=== PATIENT | female | born 1990 ===

== ENCOUNTER 2020-12-20 06:16 | Outpatient (REF) | payer BC, SELFPAY ==
[2020-12-20 11:27] LABS: Hematocrit 35.9 % (37.0-47.0); Hemoglobin 12.2 g/dl (12.0-16.0); Mean Corpuscular Hemoglobin 28.8 pg (27.0-33.0); Mean Corpuscular Volume 84.9 fL (80.0-98.0); Mean Platelet Volume 9.3 fL (9.4-12.3); Platelet Count 342 X10*3/uL (160-400); Red Blood Count 4.23 X10*6/uL (4.20-5.50); Red Cell Distribution Width 13.2 % (11.0-16.0); White Blood Count 8.3 X10*3/uL (4.8-10.8)
[2020-12-20 11:55] LABS: Alanine Aminotransferase 23 U/L (0-31); Albumin Level 3.9 g/dL (3.5-5.0); Alkaline Phosphatase 88 U/L (39-117); Anion Gap 16 (12-20); Aspartate Amino Transferase 22 U/L (5-31); Bilirubin Total 0.4 mg/dL (0.0-1.0); Blood Urea Nitrogen 10 mg/dL (9-16); Calcium 8.9 mg/dL (8.4-10.2); Carbon Dioxide 21 mmol/L (22-29); Chloride 105 mmol/L (96-108); Cholesterol 283 mg/dL; Estimated Glomerular Filt Rate > 60; Glucose Fasting 87 mg/dL (60-99); HDL Cholesterol 47 mg/dL; Potassium 4.2 mmol/L (3.3-5.1); Sodium 138 mmol/L (135-145); Total Protein 7.1 g/dL (6.5-8.0); Triglycerides 478 mg/dL
[2020-12-20 12:04] LABS: TSH reflex Free T4 1.49 uIU/mL (0.32-4.0)
[2020-12-20 12:10] LABS: HIV AB/AG Nonreactive (Nonreactive); HIV Num 1 0.09 S/CO (0.00-0.99)
[2020-12-20 14:34] LABS: CT PCR NOT DETECTED (Not Detect.); NG PCR NOT DETECTED (Not Detect.)
== END 2020-12-20 06:17 | disposition home or self-care (01) ==
LOC: HO.HMGCLDS 06:16
PROVIDERS: PCP Internal Medicine; Visit Provider Internal Medicine
DX: Z00.00 Encounter for general adult medical examination without abnormal findings (principal); Z11.4 Encounter for screening for human immunodeficiency virus [HIV]; Z11.3 Encounter for screening for infections with a predominantly sexual mode of transmission; R10.9 Unspecified abdominal pain
CPT/HCPCS: 80053; 80061; 84443; 85027; 87389; 87491; 87591

== ENCOUNTER 2020-12-23 | Outpatient (REF) | payer BC, SELFPAY | END 2020-12-23 00:01 | disposition home or self-care (01) | LOC: HO.HMGCLNP | PROVIDERS: Visit Provider Internal Medicine | DX: Z00.00 Encounter for general adult medical examination without abnormal findings (principal); R10.9 Unspecified abdominal pain | CPT/HCPCS: 87338 ==

== ENCOUNTER 2020-12-31 11:00 | Outpatient (REF) | payer BC, SELFPAY ==
--- NOTE | ~2020-12-31 | US_ITS ---
EXAMINATION: US ABDOMEN COMPLETE CLINICAL INFORMATION: Unspecified abdominal pain. Rule out gallstone. COMPARISON: None TECHNIQUE: Real-time imaging of the abdominal viscera. FINDINGS: PANCREAS: Normal. ABDOMINAL AORTA: The proximal, mid, and distal segments are normal in caliber. INFERIOR VENA CAVA: Visualized portions are normal. LIVER: Normal. The liver is normal in size. The liver contour is normal. Parenchymal echogenicity is normal. No focal hepatic lesion. There is no intrahepatic biliary duct dilatation seen. GALLBLADDER: Gallbladder wall thickness measures 0.16 cm. The gallbladder is physiologically distended without evidence of stones, sludge, polyps, wall thickening or pericholecystic fluid. COMMON BILE DUCT: Normal in caliber measuring 0.22 cm in diameter. RIGHT KIDNEY: Normal. No hydronephrosis. No renal calculi or focal parenchymal lesions. The kidney measures 13.9 cm in maximum dimension. LEFT KIDNEY: Normal. No hydronephrosis. No renal calculi or focal parenchymal lesions. The kidney measures 13.0 cm in maximum dimension. SPLEEN: Normal. The spleen measures 9.8 cm in maximum dimension. FREE FLUID: None. US/US abdomen complete IMPRESSION: Unremarkable complete abdomen ultrasound.
== END 2020-12-31 11:01 | disposition home or self-care (01) ==
LOC: HO.HMGCX 11:00
PROVIDERS: PCP Internal Medicine; Visit Provider Internal Medicine
DX: R10.9 Unspecified abdominal pain (principal)
CPT/HCPCS: 76700

== ENCOUNTER 2022-04-08 09:23 | Outpatient (REF) | payer BC, MEDICAID, SELFPAY ==
[2022-04-08 11:01] LABS: MANUAL DIFF FLAG NO
[2022-04-08 11:24] LABS: Basophils Percent Auto 0.5 % (0-2); Eosinophils Absolute Auto 0.1 X10*3/uL (0.0-0.4); Eosinophils Percent Auto 1.7 % (0-4); Hematocrit 38.8 % (37.0-47.0); Hemoglobin 13.2 g/dl (12.0-16.0); Imm Gran Abs Auto 0.02 X10*3/uL (0.00-0.03); Imm Gran Pct Auto 0.3 % (0.0-0.4); Lymphocytes Absolute Auto 3.1 X10*3/uL (1.2-4.9); Lymphocytes Percent Auto 39.9 % (20-40); Mean Corpuscular Hemoglobin 28.8 pg (27.0-33.0); Mean Corpuscular Volume 84.7 fL (80.0-98.0); Mean Platelet Volume 9.2 fL (9.4-12.3); Monocytes Absolute Auto 0.5 X10*3/uL (0.1-1.2); Monocytes Percent Auto 6.6 % (2-11); Neutrophils Absolute Auto 3.9 x10*3/uL (2.0-8.3); Platelet Count 365 X10*3/uL (160-400); Red Blood Count 4.58 X10*6/uL (4.20-5.50); Red Cell Distribution Width 12.2 % (11.0-16.0); White Blood Count 7.7 X10*3/uL (4.8-10.8)
[2022-04-08 11:35] LABS: Alanine Aminotransferase 30 U/L (0-31); Albumin Level 4.2 g/dL (3.5-5.0); Alkaline Phosphatase 101 U/L (39-117); Anion Gap 10 (12-20); Aspartate Amino Transferase 19 U/L (5-31); Bilirubin Total 0.4 mg/dL (0.0-1.0); Blood Urea Nitrogen 9 mg/dL (9-16); Calcium 8.9 mg/dL (8.4-10.2); Carbon Dioxide 26 mmol/L (22-29); Chloride 107 mmol/L (96-108); Cholesterol 314 mg/dL; Estimated Glomerular Filt Rate > 60; Glucose Fasting 95 mg/dL (60-99); HDL Cholesterol 38 mg/dL; Potassium 4.4 mmol/L (3.3-5.1); Sodium 139 mmol/L (135-145); Total Protein 7.2 g/dL (6.5-8.0); Triglycerides 556 mg/dL
[2022-04-08 11:51] LABS: Estimated Average Glucose 108 mg/dL; Hemoglobin A1c % 5.4 %
[2022-04-08 11:53] LABS: TSH reflex Free T4 1.15 uIU/mL (0.32-4.0)
== END 2022-04-08 09:24 | disposition home or self-care (01) ==
LOC: HO.HMGCLDS 09:23
PROVIDERS: Visit Provider Internal Medicine
DX: Z00.00 Encounter for general adult medical examination without abnormal findings (principal); O24.419 Gestational diabetes mellitus in pregnancy, unspecified control; O26.899 Other specified pregnancy related conditions, unspecified trimester; O99.330 Smoking (tobacco) complicating pregnancy, unspecified trimester; E78.5 Hyperlipidemia, unspecified; K21.9 Gastro-esophageal reflux disease without esophagitis; F17.210 Nicotine dependence, cigarettes, uncomplicated; Z79.899 Other long term (current) drug therapy
CPT/HCPCS: 36415; 80053; 80061; 83036; 84443; 85025

== ENCOUNTER 2022-06-24 10:57 | Outpatient (REF) | payer BC, MEDICAID, SELFPAY ==
[2022-06-24 14:36] LABS: Alanine Aminotransferase 29 U/L (0-31); Albumin Level 4.3 g/dL (3.5-5.0); Alkaline Phosphatase 95 U/L (39-117); Anion Gap 9 (12-20); Aspartate Amino Transferase 21 U/L (5-31); Bilirubin Total 0.5 mg/dL (0.0-1.0); Blood Urea Nitrogen 13 mg/dL (9-16); Carbon Dioxide 24 mmol/L (22-29); Chloride 108 mmol/L (96-108); Cholesterol 235 mg/dL; Estimated Glomerular Filt Rate > 60; Glucose Fasting 113 mg/dL (60-99); HDL Cholesterol 37 mg/dL; Potassium 4.4 mmol/L (3.3-5.1); Sodium 137 mmol/L (135-145); Total Protein 7.2 g/dL (6.5-8.0); Triglycerides 486 mg/dL
== END 2022-06-24 10:58 | disposition home or self-care (01) ==
LOC: HO.HMGCLDS 10:57
PROVIDERS: PCP Internal Medicine; Visit Provider Internal Medicine
DX: E78.5 Hyperlipidemia, unspecified (principal)
CPT/HCPCS: 36415; 80053; 80061

== ENCOUNTER 2022-09-26 09:55 | Outpatient (REF) | payer BC, MEDICAID, SELFPAY ==
[2022-09-26 11:53] LABS: Alanine Aminotransferase 22 U/L (0-31); Albumin Level 4.2 g/dL (3.5-5.0); Alkaline Phosphatase 99 U/L (39-117); Anion Gap 10 (12-20); Aspartate Amino Transferase 19 U/L (5-31); Bilirubin Total 0.5 mg/dL (0.0-1.0); Blood Urea Nitrogen 12 mg/dL (9-16); Calcium 9.4 mg/dL (8.4-10.2); Carbon Dioxide 23 mmol/L (22-29); Chloride 110 mmol/L (96-108); Cholesterol 174 mg/dL; Estimated Glomerular Filt Rate > 60; Glucose Fasting 118 mg/dL (60-99); HDL Cholesterol 37 mg/dL; LDL Cholesterol Calculated 94 mg/dl; Potassium 4.1 mmol/L (3.3-5.1); Sodium 139 mmol/L (135-145); Total Protein 7.4 g/dL (6.5-8.0); Triglycerides 217 mg/dL
== END 2022-09-26 09:56 | disposition home or self-care (01) ==
LOC: HO.HMGCLDS 09:55
PROVIDERS: PCP Internal Medicine; Visit Provider Internal Medicine
DX: E78.5 Hyperlipidemia, unspecified (principal)
CPT/HCPCS: 36415; 80053; 80061

== ENCOUNTER 2022-09-29 11:00 | Day surgery (SDC) | payer BC, MEDICAID, SELFPAY ==
--- NOTE | 2022-09-29 11:53 | HO.ANESPROP2 ---
HPI - Anesthesia Eval Consult details Narrative: egd PMFSH Active Problems Active Problems: All Active Problems (Updated 04/08/22 @ 11:35 by Keyonna Panda PA-C) Gestational diabetes mellitus (Acute) Chronic GERD (Acute) Normal pelvic exam (Acute) Hyperlipidemia (Acute) Headache (Acute) Abdominal pain (Acute) Annual physical exam (Acute) Past Medical History Medical History Abdominal pain Annual physical exam Headache Hyperlipidemia Normal pelvic exam Family History Family history of problems with anesthesia: No Surgical History History of Problems with Anesthesia: No Social History Social History Housing: Apartment Patient Tobacco Use Status: Current everyday Tobacco user Tobacco use type: Cigarette Cigarettes Per Day: 6 Years Smoked: 15 years old on and off e-Cigarette/Vaping Use: Never Used Advance Directives: No Advance Directives Information Provided: Yes Current occupational status: employed Cognitive needs: No Hearing needs: No Vision needs: Yes Meds Allergies Allergy/AdvReac Type Severity Reaction Status Date / Time No Known Allergies Allergy Verified 04/08/22 10:22 [No Known Allergies*] Active Medications: Current Medications Lactated Ringer's (Lr) 1,000 mls @ 80 mls/hr IVCONT .[id number] GAYATRI Exam Exam Date and Time: September 29, 2022 1153 Airway Mallampati Class: II TM Dist: >3cm Neck ROM: Limited Heart: rrr Lungs: cta Assessment and Plan Assessment Anesthesia Assessment: Anesthesia Plan Discussed and Chart Reviewed Final Anesthetic Review Family History of Problems with Anesthesia: No History of Problems with Anesthesia: No NPO: Yes ASA Class: II Final Preanesthetic Review: No Changes in Pt Med Stat, Meds/Allgs Chart Reviewed, Consent Obtained/Reviewed and Anes Risks/Benef Reviewed Patient Risk: Low Procedure Risk: Intermediate Anesthetic Plan Anesthetic Plan: MAC: and Agree w/ Assess. and Plan Disposition: Standard PACU
[2022-09-29 12:10] VITALS: BMI 37.2
[2022-09-29 12:14] VITALS: BP 128/82; PULSE 92; RESP 16; TEMP 36.4; O2SAT 97
[2022-09-29 12:14] LABS: UPreg QC Valid YES; Urine Pregnancy NEGATIVE (NEGATIVE)
[2022-09-29] MEDS: Lactated Ringers 1,000 ML 80 ML IVCONT (12:25)
--- NOTE | 2022-09-29 13:00 | MHC.SHP ---
Pre-Procedural Eval Section A Date of Service: 09/29/22 Section B Chief Complaint: Gastro-esophageal reflux disease without esophagit Relevant Family History (Specify if Yes): No Relevant Social History: Tobacco Use Present Medications: see Short Stay Collaborative assessment Medical History: Significant History (Abdominal pain Annual physical exam Headache Hyperlipidemia Normal pelvic exam) History of Previous Operations: No relevant previous surgery Allergies: Allergies Allergy/AdvReac Type Severity Reaction Status Date / Time No Known Allergies Allergy Verified 04/08/22 10:22 [No Known Allergies*] Review of Systems Sugical H&P ROS: Negative: Constitution, Cardiovascular, Respiratory, Neurological, Psychiatric, Hem-Onc, Allergic/Immunologic, Gastrointestinal, Genitourinary, Musculoskeletal, Integumentary, Endocrine and Eyes/Ears/Nose/Throat Exam Surgical H&P Exam: Normal: HEENT, Normal: Heart, Normal: Lungs, Normal: Extremities, Normal: Abdomen, Normal: Skin and Normal: Neurological Plan Diagnosis/Plan: Unchanged I have reviewed the history and physical and performed a pertinent physical examination on my patient. No changes have occurred unless specified. Time Spent With Patient Time: Total time managing care of this patient today ____ minutes.
--- NOTE | 2022-09-29 13:29 | W.PM.OPN ---
Operative Note Operative Note Date of Service: 09/29/22 Narrative: Procedure Description: EGD Indication: GERD Anesthesia: MAC FLEXIBLE TRANSORAL UPPER GASTROINTESTINAL ENDOSCOPY UPPER ENDOSCOPY Consent: Indications for the procedure and potential complications of bleeding, perforation, reaction to medications and missed diagnosis were discussed with the patient and informed consent was obtained. Instrument: Olympus GIF H 190 J mid size upper endoscope Monitoring: Vital signs and clinical assessment, continuous EKG monitoring, Pulse oximetry, Carbon Dioxide monitoring and blood pressure monitoring were done throughout the procedure. Procedure: The patient was placed in the left lateral decubitis position and pre-procedure medications were administered and a bite block was placed. The endoscope was inserted into the mouth and advanced under direct vision to the third part of duodenum. A careful inspection was made as the upper endoscope was withdrawn including a retroflexed examination of the proximal stomach; Findings and interventions are described below. Findings: Larynx:normal Esophagus: GE junction at 35 cm, diaphragm hiatus at 37 cm, consistent with 2 cm sliding hiatal hernia. There was few small islands of salmon pink tissue, bx taken to r/o barretts. Bx also taken from distal and proximal esophagus. Mild congestion and erythema also noted at GEJ Stomach: Patchy gastric erythema. Biopsies were obtained. Grade 2 flap valve on retroflexed examination of the cardia. There appeared to be reduced gastric movement. Duodenum: Normal bulb and descending duodenum, bx taken Intervention: Biopsies as noted above Impression/Findings: hiatal hernia esophagitis possible barretts gastritis possible gastroparesis PLAN: await results if bx neg then consider GES, weight loss and diet, can also consider surgical input or ARAT reflux precautions
[2022-09-29 13:35] VITALS: BP 118/80; PULSE 104; RESP 18; TEMP 36.7; O2SAT 96
[2022-09-29 13:47] VITALS: BP 143/90; PULSE 80; RESP 20; TEMP 36.8; O2SAT 97
== END 2022-09-29 14:23 | disposition home or self-care (01) ==
PROVIDERS: Anesthesiology; PCP Internal Medicine; Visit Provider Internal Medicine Gastroenterology
PROC: 0DJ08ZZ Inspection of Upper Intestinal Tract, Via Natural or Artificial Opening Endoscopic (ICD-10-PCS; CPT 43235; principal; 2022-09-29 13:10)
DX: K21.9 Gastro-esophageal reflux disease without esophagitis (principal); K20.80 Other esophagitis without bleeding; K29.50 Unspecified chronic gastritis without bleeding; K44.9 Diaphragmatic hernia without obstruction or gangrene; E78.5 Hyperlipidemia, unspecified; Z79.899 Other long term (current) drug therapy; F17.210 Nicotine dependence, cigarettes, uncomplicated
CPT/HCPCS: 43239; 81025; 88305; 88342; J3010

== ENCOUNTER → 2022-09-29 11:00 | Outpatient (BNV) | payer BC, MEDICAID, SELFPAY | PROVIDERS: PCP Internal Medicine; Visit Provider Internal Medicine Gastroenterology | DX: K21.00 Gastro-esophageal reflux disease with esophagitis, without bleeding (principal); K29.70 Gastritis, unspecified, without bleeding | CPT/HCPCS: 43239 ==

== ENCOUNTER 2022-10-14 07:17 | Outpatient (AMB) | payer BC, MEDICAID, SELFPAY ==
--- NOTE | 2022-10-14 07:44 | A.OFFVIS_ITS ---
Intake Vital Signs 10/14/22 07:46 Height 5 ft 3 in Weight 210 lb BMI 37.2 BP 149/94 H Blood Pressure Location Lt brachial Position Sitting Pulse 87 Intake Visit Reasons: S/p egd- Ezio Intake Note: Patient follow up for EGD results. Patient denies any GI issues. 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 Holguin-she is feeling well, omeprazole 40 mg daily-she does admit that she was very worried about her symptoms-tolerated rated procedure well. She has made dietary changes, she does admit that she smokes cigarettes as well as drinks caffeine however is trying to cut back. c/o early satiety Reviewed procedure report, pathology as well as recommendations opportunity for questions No complaints of nausea, vomiting, hematemesis, hematochezia fever chills PFSH Medical History (Updated 10/14/22 @ 07:59 by Keyonna Panda PA-C) Abdominal pain Annual physical exam Headache Hyperlipidemia Normal pelvic exam Surgical History (Updated 10/06/22 @ 11:20 by Carmella Sánchez) History of esophagogastroduodenoscopy (EGD) Social History Housing: Apartment Patient Tobacco Use Status: Current everyday Tobacco user Tobacco use type: Cigarette Cigarettes Per Day: 4 Years Smoked: 15 years old on and off e-Cigarette/Vaping Use: Never Used Current occupational status: employed Cognitive needs: No Hearing needs: No Vision needs: Yes Review of Systems Const All systems reviewed & are unremarkable except as noted in HPI and below Card Denies chest pain and Denies dyspnea Resp Denies dyspnea GI Reports heartburn Physical Exam Const General: cooperative, healthy appearing, comfortable, no acute distress and well groomed Orientation/consciousness: patient oriented x3 Limitations: no limitations Resp Effort & Inspection: normal respiratory effort and able to speak in complete sentences Neuro General: patient oriented x3 Extrem General: Yes full ROM Psych Appearance: grossly normal and well kempt Mental Status: mental status grossly normal Speech and movement: Normal speech and movement present and Clear speech present Affect: normal affect Attitude: cooperative Thought process: Normal thought process present Thought content: Normal thought content present Insight: Good insight present (Psych) Judgement: Good judgement present (Psych) Results Reviewed Results Reviewed: Name:Lisa Delgado Age/Sex: 32/F Attending: Juany Holguin MD : 1990 Submitted by: Juany Holguin MD Copies to: Delaney Jack MD MR #: [id number] ? Status: DEP SD Collected: 09/29/22 Location: [facility] Received: 09/29/22 Diagnosis A. Duodenum, biopsies:? Duodenal mucosa with no diagnostic alteration; no evidence of foveolar metaplasia, dysplasia, or increased intraepithelial lymphocytes. B. Stomach, biopsies:? Mild chronic inactive gastritis, no evidence of H pylori, intestinal metaplasia, or dysplasia.? C. Gastroesophageal junction, biopsies:? Inflamed squamocolumnar junctional mucosa, no evidence of intestinal metaplasia or dysplasia. D. Esophagus, distal, biopsies:? Esophageal squamous mucosa with no diagnostic alteration, no evidence of active esophagitis. E. Esophagus, proximal, biopsies:? Esophageal squamous mucosa with no diagnostic alteration, no evidence of active esophagitis.? It is for Clinical History Pre-Op Dx:? GERD Post-Op Dx: Possible gastroparesis, hiatal hernia, possible Ny's esophagus, esophagitis Findings: Larynx:normal Esophagus: GE junction at 35? cm, diaphragm hiatus at 37 cm,? consistent with 2 cm sliding hiatal hernia. There was few small islands of salmon pink tissue, bx taken to r/o barretts. Bx also taken from distal and proximal esophagus. Mild congestion and erythema also noted at GEJ Stomach: Patchy gastric erythema. Biopsies were obtained. Grade 2 flap valve on retroflexed examination of the cardia. There appeared to be reduced gastric movement. Duodenum: Normal bulb and descending duodenum, bx taken Intervention: Biopsies as noted above Impression/Findings: hiatal hernia esophagitis possible barretts gastritis possible gastroparesis PLAN: await results if bx neg then consider GES, weight loss and diet, can also consider surgical input or ARAT reflux precautions Assessment & Plan Assessment & Plan (1) Chronic GERD: Comment: Reflux precautions Code(s): K21.9 - Gastro-esophageal reflux disease without esophagitis Plan: Continue PPI, reflux precautions reviewed (2) Hiatal hernia: Code(s): K44.9 - Diaphragmatic hernia without obstruction or gangrene Plan: Precautions reviewed, Plan GES ppi wt loss Patient Instructions: Very pleasant 32-year-old female follows up after recent EGD for acid reflux Reviewed procedure report, pathology and recommendation She will continue omeprazole daily, continue to avoid culprits discussed weight loss she is actively pursuing-avoid culprits Will get GES-r/o with gastroparesis Encouraged to call questions or concerns Appreciate the opportunity assist in care the patient Coding Level of Care Code Est Pt Level 3 (68634) Diagnoses Chronic GERD K21.9 Hiatal hernia K44.9 Time Spent (min) 20
[2022-10-14 07:46] VITALS: BP 149/94; PULSE 87; BMI 37.2
== END 2022-10-14 08:48 | disposition home or self-care (01) ==
PROVIDERS: PCP Internal Medicine; Visit Provider Physician Assistant
DX: K21.9 Gastro-esophageal reflux disease without esophagitis (principal); K44.9 Diaphragmatic hernia without obstruction or gangrene
CPT/HCPCS: 99213

== ENCOUNTER → 2022-10-14 07:17 | Outpatient (BNVA) | payer BC, MEDICAID, SELFPAY | PROVIDERS: PCP Internal Medicine; Visit Provider Physician Assistant ==

== ENCOUNTER 2023-02-18 11:24 | Outpatient (AMB) | payer BC, MEDICAID, SELFPAY ==
--- NOTE | 2023-02-18 11:39 | MHC.PC.OV ---
Vital Signs 02/18/23 11:43 Height 5 ft 3 in Weight 220 lb BMI 39.0 BP 126/84 Blood Pressure Location Lt brachial Position Sitting Pulse 85 Pulse Source Pulse Oximeter Pulse Oximetry (%) 99 Oxygen Delivery Method Room Air Intake Visit Reasons: Annual PE Intake Note: Pt is here today for PE. Pt states that her last pap was last year at [facility]. Allergies No Known Allergies [No Known Allergies*] Allergy (Verified 02/18/23 11:43) Medication List - Last Reconciled 02/18/23 by Delaney Jack MD omeprazole 40 mg PO DAILY rosuvastatin (Crestor) 20 mg PO DAILY Tobacco use date assessed: 02/18/23 Dental Screening Dental Screen Date: 02/18/23 Did you have a dental visit in the last 12 months?: Yes Did you have a dental problem in the last 6 months where you did not have access to dental care?: No Was dental information given to patient?: Patient has dentist HPI Annual PE HPI Details Pt presents for PE. Pt has been under a lot stress taking care of her father with end-stage COPD who moved in to live with her. Patient is concerned about not being able to lose weight. She has been exercising on and off once a week the most. FORMERLY [facility], [facility]1983 Medical History Normal pelvic exam Hyperlipidemia Headache Abdominal pain Annual physical exam Surgical History History of esophagogastroduodenoscopy (EGD) Family History Mother Mental health disorder Father Diabetes Hypertension HIV (human immunodeficiency virus infection) Substance use disorder Sister Mental health disorder Social History Housing: Apartment Patient Tobacco Use Status: Current everyday Tobacco user Tobacco use type: Cigarette Cigarettes Per Day: 8 Years Smoked: 15 years old on and off e-Cigarette/Vaping Use: Never Used Current occupational status: employed Cognitive needs: No Hearing needs: No Vision needs: Yes Questionnaire PHQ-9 Over the last 2 weeks, how often have you been bothered by any of the following problems? 1. Little interest or pleasure in doing things: several days 2. Feeling down, depressed, or hopeless: several days 3. Trouble falling or staying asleep, or sleeping too much: not at all 4. Feeling tired or having little energy: several days 5. Poor appetite or overeating: more than half the days 6. Feeling bad about yourself - or that you are a failure or have let yourself or your family down: not at all 7. Trouble concentrating on things, such as reading the newspaper or watching television: not at all 8. Moving or speaking so slowly that other people could have noticed. Or the opposite - being so fidgety or restless that you have been moving around a lot more than usual: several days 9. Thoughts that you would be better off or of hurting yourself in some way: not at all Total score: 6 Depression Screening Interpretation: Negative Depression Screening Done: Yes Source: Developed by Drs. Tae Dooley, Karlene Goldberg, Serge Bradford and colleagues, with an educational zachary from [employer]. Thrive Questionnaire Date Thrive assessed: 02/18/23 I am a: Patient What is your living situation today?: I have a steady place to live Within the past 12 months, did the food you bought not last and you didn't have the money to get more?: Never true Within the past 12 months, did you worry whether your food would run out before you got money to buy more?: Never true Do you have trouble paying for medicines?: No Do you have trouble getting transportation to medical appointments?: No Do you have trouble paying your heating and electricity bill?: No Do you have trouble taking care of your child, family member or friend?: Yes Do you have trouble with day-to-day activities such as bathing, preparing meals, shopping, managing finances, etc.?: No Are you currently unemployed and looking for a job?: No Are you interested in more education?: No Please select the resources that you would like help with: Care for elder or disabled Currently or been in a relationship where the following occur: no concerns reported RUTH-7 AMB Questionnaire RUTH-7 Date RUTH - 7 assessed: 02/18/23 Feeling nervous, anxious, or on edge: 2 = More than half the days Not being able to stop or control worryin = More than half the days Worrying too much about different things: 2 = More than half the days Trouble relaxin = Several days Being so restless that it is hard to sit still: 0 = Not at all Becoming easily annoyed or irritable: 1 = Several days Feeling afraid as if something awful might happen: 1 = Several days Total RUTH-7 score (0-4 normal; 5-9 mild; 10-14 moderate; 15-21 severe): 9 Source: Developed by Drs. Tae Dooley, Karlene Goldberg, Serge Bradford and colleagues, with an educational zachary from [employer]. Review of Systems Const All systems reviewed & are unremarkable except as noted in HPI and below Reports no additional complaints Eyes Reports no additional complaints ENT Reports no additional complaints Card Reports no additional complaints Resp Reports no additional complaints GI Reports no additional complaints Reports no additional complaints Skin/Breast Reports system reviewed and no additional complaints, except as documented Physical exam (Primary Care) Vital Signs: Last Vital Signs Pulse 85 02/18/23 11:43 BP 126/84 02/18/23 11:43 Pulse Ox 99 02/18/23 11:43 Oxygen Delivery Method Room Air 02/18/23 11:43 BMI result Body Mass Index 39.0 Tobacco/Smoking Status: Tobacco use Status Tobacco use date assessed 02/18/23 02/18/23 11:51 Patient Tobacco Use Status Current everyday Tobacco 02/18/23 11:44 Tobacco use type Cigarette 02/18/23 11:44 e-Cigarette/Vaping Use Never Used 02/18/23 11:44 Depression Screening Interpretation: Negative Thrive Assessment: Date of Thrive Assessment Date Thrive assessed 03/03/22 02/18/23 11:44 Currently or been in a relationship where the following occur: no concerns reported Const General: no acute distress HENMT Head: Yes normal to inspection Ears: hearing grossly normal bilaterally Face and sinus: Yes normal facial exam Mouth: Normal oral and palatal mucosa present Throat: Yes posterior oropharynx normal Eyes General: appearance normal, both eyes and all related structures Neck Neck: Yes no lymphadenopathy and Yes supple Resp Effort & Inspection: normal respiratory effort Auscultation: clear to auscultation bilaterally Cardio Rhythm: regular rhythm Heart sounds: S1 normal heart sound present and S2 normal heart sound present GI Inspection: Yes normal to inspection Palpation (GI): Soft to palpation Percussion: Yes normal to percussion Auscultation: normal bowel sounds Assessment and Plan Assessment & Plan (1) Gestational diabetes mellitus: Comment: took Metformin 2021 Code(s): O24.419 - Gestational diabetes mellitus in , unspecified control Plan: ADA diet increase physical activity weight loss discussed with the patient. she declined referral to disassembler product and is not interested in weight management program like weight watchers. Patient will try to lose 10 lb in the next 6 months. (2) Hyperlipidemia: Code(s): E78.5 - Hyperlipidemia, unspecified Plan: Continue crestor, patient will return in 1 month for fasting blood work (3) Annual physical exam: Code(s): Z00.00 - Encounter for general adult medical examination without abnormal findings Plan: Well-balanced diet regular physical activity weight loss discussed with the patient. She is up-to-date with the Pap smear by conveyor installer last year. (4) Chronic GERD: Comment: Reflux precautions, negative EGD 09/30 Code(s): K21.9 - Gastro-esophageal reflux disease without esophagitis Plan: Anti GERD diet weight loss discussed with the patient she takes PPI prn Orders: Orders Lipid Panel 1 Month E78.5 - Hyperlipidemia, unspecified, O24.419 - Gestational diabetes mellitus in , unspecified control, Z00.00 - Encounter for general adult medical examination without abnormal findings Comprehensive Gorman. Panel Fast 1 Month E78.5 - Hyperlipidemia, unspecified, O24.419 - Gestational diabetes mellitus in , unspecified control, Z00.00 - Encounter for general adult medical examination without abnormal findings Hemoglobin A1c 1 Month E78.5 - Hyperlipidemia, unspecified, O24.419 - Gestational diabetes mellitus in , unspecified control, Z00.00 - Encounter for general adult medical examination without abnormal findings Complete Blood Count Auto Diff 1 Month E78.5 - Hyperlipidemia, unspecified, O24.419 - Gestational diabetes mellitus in , unspecified control, Z00.00 - Encounter for general adult medical examination without abnormal findings TSH reflex Free T4 1 Month E78.5 - Hyperlipidemia, unspecified, O24.419 - Gestational diabetes mellitus in , unspecified control, Z00.00 - Encounter for general adult medical examination without abnormal findings Coding Level of Care Code Est Pt Prev Care 18-39y(83301) Diagnoses Gestational diabetes mellitus O24.419 Hyperlipidemia E78.5 Annual physical exam Z00.00 Chronic GERD K21.9
[2023-02-18 11:43] VITALS: BP 126/84; PULSE 85; O2SAT 99; BMI 39.0
== END 2023-02-18 13:09 | disposition home or self-care (01) ==
PROVIDERS: PCP Internal Medicine; Visit Provider Internal Medicine
DX: O24.419 Gestational diabetes mellitus in pregnancy, unspecified control (principal); E78.5 Hyperlipidemia, unspecified; Z00.00 Encounter for general adult medical examination without abnormal findings; K21.9 Gastro-esophageal reflux disease without esophagitis
CPT/HCPCS: 99395

== ENCOUNTER 2023-03-27 09:16 | Outpatient (REF) | payer BC, MEDICAID, SELFPAY ==
[2023-03-27 11:24] LABS: MANUAL DIFF FLAG NO
[2023-03-27 11:31] LABS: Basophils Percent Auto 0.4 % (0-2); Eosinophils Absolute Auto 0.1 X10*3/uL (0.0-0.4); Hematocrit 41.9 % (37.0-47.0); Hemoglobin 14.2 g/dl (12.0-16.0); Imm Gran Abs Auto 0.02 X10*3/uL (0.00-0.03); Imm Gran Pct Auto 0.2 % (0.0-0.4); Lymphocytes Absolute Auto 3.5 X10*3/uL (1.2-4.9); Lymphocytes Percent Auto 35.3 % (20-40); Mean Corpuscular HGB Conc 33.9 g/dl (31.0-35.0); Mean Corpuscular Hemoglobin 28.7 pg (27.0-33.0); Mean Corpuscular Volume 84.8 fL (80.0-98.0); Mean Platelet Volume 9.4 fL (9.4-12.3); Monocytes Absolute Auto 0.7 X10*3/uL (0.1-1.2); Monocytes Percent Auto 7.6 % (2-11); Neutrophils Absolute Auto 5.4 x10*3/uL (2.0-8.3); Neutrophils Percent Auto 55.5 % (45-73); Platelet Count 316 X10*3/uL (160-400); Red Blood Count 4.94 X10*6/uL (4.20-5.50); Red Cell Distribution Width 12.8 % (11.0-16.0); White Blood Count 9.8 X10*3/uL (4.8-10.8)
[2023-03-27 11:48] LABS: Estimated Average Glucose 114 mg/dL; Hemoglobin A1c % 5.6 % (<6.0)
[2023-03-27 12:07] LABS: Alanine Aminotransferase 38 U/L (0-31); Albumin Level 4.3 g/dL (3.5-5.0); Alkaline Phosphatase 107 U/L (39-117); Anion Gap 10 (12-20); Aspartate Amino Transferase 23 U/L (5-31); Bilirubin Total 0.4 mg/dL (0.0-1.0); Blood Urea Nitrogen 10 mg/dL (9-16); Carbon Dioxide 25 mmol/L (22-29); Chloride 106 mmol/L (96-108); Cholesterol 193 mg/dL (<200); Estimated Glomerular Filt Rate > 60; Glucose Fasting 110 mg/dL (60-99); HDL Cholesterol 38 mg/dL (>40); LDL Cholesterol Calculated 99 mg/dL (<100); Potassium 4.2 mmol/L (3.3-5.1); Sodium 137 mmol/L (135-145); Total Protein 7.5 g/dL (6.5-8.0); Triglycerides 281 mg/dL (<150)
[2023-03-27 12:13] LABS: TSH reflex Free T4 1.06 uIU/mL (0.32-4.0)
== END 2023-03-27 09:17 | disposition home or self-care (01) ==
LOC: HO.HMGCLDS 09:16
PROVIDERS: PCP Internal Medicine; Visit Provider Internal Medicine
DX: O24.419 Gestational diabetes mellitus in pregnancy, unspecified control (principal); O26.899 Other specified pregnancy related conditions, unspecified trimester; E78.5 Hyperlipidemia, unspecified
CPT/HCPCS: 36415; 80053; 80061; 83036; 84443; 85025

== ENCOUNTER 2023-08-19 10:26 | Outpatient (AMB) | payer BC, MEDICAID, SELFPAY ==
--- NOTE | 2023-08-19 10:32 | A.OFFPC_ITS ---
Vital Signs 08/19/23 10:49 Height 5 ft 3 in Weight 219 lb BMI 38.8 BP 120/82 Blood Pressure Location Lt brachial Position Sitting Pulse 95 Pulse Source Pulse Oximeter Pulse Oximetry (%) 96 Oxygen Delivery Method Room Air Intake Visit Reasons: 6 Month follow up Intake Note: Pt is here today for 6 months follow up visit. Allergies No Known Allergies [No Known Allergies*] Allergy (Verified 08/19/23 10:51) Medication List - Last Reconciled 08/19/23 by Delaney Jack MD omeprazole 40 mg PO DAILY rosuvastatin (Crestor) 20 mg PO DAILY semaglutide (weight loss) (Wegovy) 0.25 mg (0.5 mL) subcut QWEEK Tobacco use date assessed: 08/19/23 Dental Screening Dental Screen Date: 08/19/23 Did you have a dental visit in the last 12 months?: Yes Did you have a dental problem in the last 6 months where you did not have access to dental care?: No Was dental information given to patient?: Patient has dentist HPI 6 Month follow up HPI Details Patient presents for the follow-up on hyperlipidemia controlled on Crestor. Patient started Wegovy a month ago and lost 10 lb. She has been following lower caloric intake diet and exercising regularly [facility] Medical History Normal pelvic exam Hyperlipidemia Headache Abdominal pain Annual physical exam Surgical History History of esophagogastroduodenoscopy (EGD) Family History Mother Mental health disorder Father Diabetes Hypertension HIV (human immunodeficiency virus infection) Substance use disorder Sister Mental health disorder Social History Housing: Apartment Patient Tobacco Use Status: Current everyday Tobacco user Tobacco use type: Cigarette Cigarettes Per Day: 6 Years Smoked: 15 years old on and off e-Cigarette/Vaping Use: Never Used service: No Current occupational status: employed Cognitive needs: No Hearing needs: No Vision needs: Yes Questionnaire Thrive Questionnaire Date Thrive assessed: 02/18/23 RUTH-7 AMB Questionnaire RUTH-7 Date RUTH - 7 assessed: 02/18/23 Source: Developed by Drs. Tae Dooley, Karlene Goldberg, Serge Bradford and colleagues, with an educational zachary from [employer]. Review of Systems Const All systems reviewed & are unremarkable except as noted in HPI and below Card Reports no additional complaints Resp Reports no additional complaints GI Reports no additional complaints Reports no additional complaints Physical exam (Primary Care) Vital Signs: Last Vital Signs Pulse 95 08/19/23 10:49 BP 120/82 08/19/23 10:49 Pulse Ox 96 08/19/23 10:49 Oxygen Delivery Method Room Air 08/19/23 10:49 BMI result Body Mass Index 38.8 Tobacco/Smoking Status: Tobacco use Status Tobacco use date assessed 08/19/23 08/19/23 10:53 Patient Tobacco Use Status Current everyday Tobacco 08/19/23 10:32 Tobacco use type Cigarette 08/19/23 10:32 e-Cigarette/Vaping Use Never Used 08/19/23 10:32 Thrive Assessment: Date of Thrive Assessment Date Thrive assessed 02/18/23 08/19/23 10:32 Const General: no acute distress HENMT Head: Yes normal to inspection Resp Effort & Inspection: normal respiratory effort Auscultation: clear to auscultation bilaterally Cardio Rhythm: regular rhythm Heart sounds: S1 normal heart sound present and S2 normal heart sound present GI Inspection: Yes normal to inspection Palpation (GI): Soft to palpation Percussion: Yes normal to percussion Auscultation: normal bowel sounds Results AMB Rapid Strep AMB Rapid Strep Negative Last Edit by MIRLANDE Osman on 08/19/23 11: 46 Results Reviewed Results Reviewed: Laboratory Last Values Strep Scn Rapid Clinic Negative 08/19/23 11:46 Assessment and Plan Assessment & Plan (1) Over weight: Code(s): E66.3 - Overweight Plan: Continue Wegovy for another month, if patient tolerates medication well Wegovy will be increased to 0.5 mg and patient will follow-up in 3 months (2) Chronic GERD: Comment: Reflux precautions, negative EGD 09/30 Code(s): K21.9 - Gastro-esophageal reflux disease without esophagitis Plan: Continue PPI p.r.n. Orders: Orders AMB Rapid Strep Screen Today Z13.9 - Encounter for screening, unspecified Lipid Panel 3 Months E66.3 - Overweight, E78.5 - Hyperlipidemia, unspecified, O24.419 - Gestational diabetes mellitus in , unspecified control Comprehensive [place]. Panel Fast 3 Months E66.3 - Overweight, E78.5 - Hyperlipidemia, unspecified, O24.419 - Gestational diabetes mellitus in preg yrn, unspecified control Hemoglobin A1c 3 Months E66.3 - Overweight, E78.5 - Hyperlipidemia, unspecified, O24.419 - Gestational diabetes mellitus in , unspecified control Coding Level of Care Code Est Pt Level 4 (50459) Diagnoses Over weight E66.3 Chronic GERD K21.9
[2023-08-19 10:49] VITALS: BP 120/82; PULSE 95; O2SAT 96; BMI 38.8
== END 2023-08-19 11:41 | disposition home or self-care (01) ==
PROVIDERS: PCP Internal Medicine; Visit Provider Internal Medicine
DX: E66.3 Overweight (principal); K21.9 Gastro-esophageal reflux disease without esophagitis; Z13.9 Encounter for screening, unspecified
CPT/HCPCS: 87880; 99214

== ENCOUNTER 2023-11-18 07:51 | Outpatient (REF) | payer BC, MEDICAID, SELFPAY ==
[2023-11-18 10:47] LABS: Estimated Average Glucose 111 mg/dL; Hemoglobin A1C 132.0179 umol/L; Hemoglobin A1c % 5.5 % (<6.0); Total Hemoglobin (HGBA1C) 3633.3897 umol/L
[2023-11-18 10:58] LABS: Alanine Aminotransferase 24 U/L (0-31); Albumin Level 4.3 g/dL (3.5-5.0); Alkaline Phosphatase 94 U/L (39-117); Anion Gap 10 (12-20); Aspartate Amino Transferase 19 U/L (5-31); Bilirubin Total 0.5 mg/dL (0.0-1.0); Blood Urea Nitrogen 11 mg/dL (9-16); Calcium 9.2 mg/dL (8.4-10.2); Carbon Dioxide 23 mmol/L (22-29); Chloride 109 mmol/L (96-108); Cholesterol 141 mg/dL (<200); Estimated Glomerular Filt Rate > 60; Glucose Fasting 108 mg/dL (60-99); HDL Cholesterol 38 mg/dL (>40); LDL Cholesterol Calculated 59 mg/dL (<100); Potassium 3.9 mmol/L (3.3-5.1); Sodium 138 mmol/L (135-145); Total Protein 7.3 g/dL (6.5-8.0); Triglycerides 222 mg/dL (<150)
== END 2023-11-18 07:52 | disposition home or self-care (01) ==
LOC: HO.HMGCLDS 07:51
PROVIDERS: PCP Internal Medicine; Visit Provider Internal Medicine
DX: E66.3 Overweight (principal); E78.5 Hyperlipidemia, unspecified; O24.419 Gestational diabetes mellitus in pregnancy, unspecified control
CPT/HCPCS: 36415; 80053; 80061; 83036

== ENCOUNTER 2023-11-23 09:49 | Outpatient (AMB) | payer BC, MEDICAID, SELFPAY ==
[2023-11-23 09:54] VITALS: BP 104/68; PULSE 93; O2SAT 97; BMI 38.3
--- NOTE | 2023-11-23 09:54 | A.OFFPC_ITS ---
Vital Signs 11/23/23 09:54 Height 5 ft 3 in Weight 216 lb BMI 38.3 BP 104/68 Blood Pressure Location Lt brachial Position Sitting Pulse 93 Pulse Source Pulse Oximeter Pulse Oximetry (%) 97 Oxygen Delivery Method Room Air Intake Visit Reasons: 3 Month follow up Intake Note: Pt is here today for 3 months follow up visit. Allergies No Known Allergies [No Known Allergies*] Allergy (Verified 11/23/23 09:56) Medication List - Last Reconciled 11/23/23 by Delaney Jack MD omeprazole 40 mg PO DAILY rosuvastatin (Crestor) 20 mg PO DAILY semaglutide (weight loss) (Wegovy) 0.5 mg (0.5 mL) subcut QWEEK Tobacco use date assessed: 11/23/23 Dental Screening Dental Screen Date: 08/19/23 HPI 3 Month follow up HPI Details Patient presents for the follow-up. She took Wegovy only for 1 month because of the shortage at the pharmacy. Patient lost 10 lb and has been decreasing caloric intake eating well-balanced diet and exercising regularly. Hyperlipidemia is controlled on Crestor [facility] Medical History Normal pelvic exam Hyperlipidemia Headache Abdominal pain Annual physical exam Surgical History History of esophagogastroduodenoscopy (EGD) Family History Mother Mental health disorder Father Diabetes Hypertension HIV (human immunodeficiency virus infection) Substance use disorder Sister Mental health disorder Social History Housing: Apartment Patient Tobacco Use Status: Current everyday Tobacco user Tobacco use type: Cigarette Cigarettes Per Day: 6 Years Smoked: 15 years old on and off e-Cigarette/Vaping Use: Never Used service: No Current occupational status: employed Cognitive needs: No Hearing needs: No Vision needs: Yes Questionnaire PHQ-9 Over the last 2 weeks, how often have you been bothered by any of the following problems? 1. Little interest or pleasure in doing things: not at all 2. Feeling down, depressed, or hopeless: not at all 3. Trouble falling or staying asleep, or sleeping too much: not at all 4. Feeling tired or having little energy: not at all 5. Poor appetite or overeating: not at all 6. Feeling bad about yourself - or that you are a failure or have let yourself or your family down: not at all 7. Trouble concentrating on things, such as reading the newspaper or watching television: not at all 8. Moving or speaking so slowly that other people could have noticed. Or the opposite - being so fidgety or restless that you have been moving around a lot more than usual: not at all 9. Thoughts that you would be better off or of hurting yourself in some way: not at all Total score: 0 Depression Screening Interpretation: Negative Depression Screening Done: Yes 45269 - PHQ-9 Billing: Yes Source: Developed by Drs. Tae Dooley, Karlene Goldberg, Serge Bradford and colleagues, with an educational zachary from [employer]. Thrive Questionnaire Date Thrive assessed: 11/23/23 I am a: Patient What is your living situation today?: I have a steady place to live Within the past 12 months, did the food you bought not last and you didn't have the money to get more?: Often true Within the past 12 months, did you worry whether your food would run out before you got money to buy more?: Never true Do you have trouble paying for medicines?: No Do you have trouble getting transportation to medical appointments?: No Do you have trouble paying your heating and electricity bill?: No Do you have trouble taking care of your child, family member or friend?: No Do you have trouble with day-to-day activities such as bathing, preparing meals, shopping, managing finances, etc.?: No Are you currently unemployed and looking for a job?: No Are you interested in more education?: No Please select the resources that you would like help with: None Currently or been in a relationship where the following occur: No concerns reported THRIVE Score: 1 AUDIT C Alcohol Use Questionnaire (AUDIT-C) 1. How often do you have a drink containing alcohol?: Never Total Score: 0 RUTH-7 AMB Questionnaire RUTH-7 Date RUTH - 7 assessed: 11/23/23 Feeling nervous, anxious, or on edge: 0 = Not at all Not being able to stop or control worryin = Not at all Worrying too much about different things: 0 = Not at all Trouble relaxin = Not at all Being so restless that it is hard to sit still: 0 = Not at all Becoming easily annoyed or irritable: 0 = Not at all Feeling afraid as if something awful might happen: 0 = Not at all Total RUTH-7 score (0-4 normal; 5-9 mild; 10-14 moderate; 15-21 severe): 0 Source: Developed by Drs. Tae Dooley, Karlene Goldberg, Serge Bradford and colleagues, with an educational zachary from [employer]. RUTH-7 Assessment Billing RUTH-7 Assessment Tool: RUTH-7 Assessment 99938 Review of Systems Const All systems reviewed & are unremarkable except as noted in HPI and below Card Reports no additional complaints Resp Reports no additional complaints GI Reports no additional complaints Reports no additional complaints Physical exam (Primary Care) Vital Signs: Last Vital Signs Pulse 93 11/23/23 09:54 BP 104/68 11/23/23 09:54 Pulse Ox 97 11/23/23 09:54 Oxygen Delivery Method Room Air 11/23/23 09:54 BMI result Body Mass Index 38.3 Tobacco/Smoking Status: Tobacco use Status Tobacco use date assessed 11/23/23 11/23/23 09:58 Patient Tobacco Use Status Current everyday Tobacco 11/23/23 09:58 Tobacco use type Cigarette 11/23/23 09:58 e-Cigarette/Vaping Use Never Used 11/23/23 09:58 PHQ-9: PHQ-9 Score PHQ-9: Total score 0 11/23/23 09:58 Depression Screening Interpretation: Negative Thrive Assessment: Date of Thrive Assessment Date Thrive assessed 11/23/23 11/23/23 09:58 Currently or been in a relationship where the following occur: No concerns reported Const General: no acute distress Resp Effort & Inspection: normal respiratory effort Auscultation: clear to auscultation bilaterally Cardio Rhythm: regular rhythm Heart sounds: S1 normal heart sound present and S2 normal heart sound present GI Inspection: Yes normal to inspection Palpation (GI): Soft to palpation Coding Level of Care Code Est Pt Level 3 (62823) Diagnoses Hyperlipidemia E78.5 Over weight E66.3 Additional Codes RUTH-7 Assessment Billing - RUTH-7 Assessment Tool: RUTH-7 Assessment 32012 ([id number]) Assessment & Plan Assessment & Plan (1) Hyperlipidemia: Code(s): E78.5 - Hyperlipidemia, unspecified Category: Medical Plan: Patient will try taking Crestor every other day check lipid profile in 2 months (2) Over weight: Comment: BMI 38,3 Code(s): E66.3 - Overweight Category: Medical Plan: Patient took Wegovy 0.25 for 1 month and tolerated well. She will increase Wegovy to 0.5 mg weekly for another month and if no side effects she will increase the dose to 1 mg. Continue well-balanced decrease caloric intake diet and regular exercise follow-up in 2 months Orders: Orders Comprehensive [place]. Panel Fast 2 Months E78.5 - Hyperlipidemia, unspecified, Z0 0.00 - Encounter for general adult medical examination without abnormal findings Lipid Panel 2 Months E78.5 - Hyperlipidemia, unspecified, Z00.00 - Encounter for general adult medical examination without abnormal findings Medications: Changed From semaglutide (weight loss) (Wegovy) administer weeks 5 through 8 of therapy 0.5 mg (0.5 mL) subcut QWEEK 2 mL 2RF To Wegovy (semaglutide (weight loss)) 0.5 mg (0.5 mL) subcut QWEEK 2 mL 2RF NS Refilled Wegovy (semaglutide (weight loss)) 0.5 mg (0.5 mL) subcut QWEEK 2 mL 2RF NS
== END 2023-11-23 10:19 | disposition home or self-care (01) ==
PROVIDERS: PCP Internal Medicine; Visit Provider Internal Medicine
DX: E78.5 Hyperlipidemia, unspecified (principal); E66.3 Overweight

== ENCOUNTER → 2023-11-23 09:49 | Outpatient (BNVA) | payer BC, MEDICAID, SELFPAY | PROVIDERS: PCP Internal Medicine; Visit Provider Internal Medicine | DX: E78.5 Hyperlipidemia, unspecified (principal); E66.3 Overweight; Z68.38 Body mass index [BMI] 38.0-38.9, adult | CPT/HCPCS: 96127 ==

== ENCOUNTER 2024-01-27 10:30 | Outpatient (AMB) | payer BC, MEDICAID, SELFPAY ==
[2024-01-27 10:36] VITALS: BP 118/72; PULSE 97; O2SAT 98; BMI 36.7
--- NOTE | 2024-01-27 10:36 | MHC.PC.OV ---
Vital Signs 01/27/24 10:36 Height 5 ft 3 in Weight 207 lb BMI 36.7 BP 118/72 Blood Pressure Location Lt brachial Position Sitting Pulse 97 Pulse Source Pulse Oximeter Pulse Oximetry (%) 98 Oxygen Delivery Method Room Air Intake Visit Reasons: 2 month follow up Intake Note: Pt is here today for 2 months follow up visit on weight medication. Pt states that she is getting her medication from weight management clinic. Allergies No Known Allergies [No Known Allergies*] Allergy (Verified 01/27/24 10:38) Medication List - Last Reconciled 01/27/24 by Delaney Jack MD omeprazole 40 mg PO DAILY rosuvastatin (Crestor) 20 mg PO DAILY semaglutide (weight loss) (Wegovy) 1 mg subcut QWEEK Tobacco use date assessed: 11/23/23 Dental Screening Dental Screen Date: 08/19/23 HPI 2 month follow up HPI Details Patient presents for the follow-up of hyperlipidemia and obesity. She lost 20 lb on Wegovy 1 mg increasing physical activity decreasing caloric intake. Patient would like to increase Wegovy to 2.4 mg to facilitate more weight loss and decreased complications of obesity including heart attack, diabetes, hypertension. [facility] Medical History Normal pelvic exam Hyperlipidemia Headache Abdominal pain Annual physical exam Surgical History History of esophagogastroduodenoscopy (EGD) Family History Mother Mental health disorder Father Diabetes Hypertension HIV (human immunodeficiency virus infection) Substance use disorder Sister Mental health disorder Social History Housing: Apartment Patient Tobacco Use Status: Current everyday Tobacco user Tobacco use type: Cigarette Cigarettes Per Day: 6 Years Smoked: 15 years old on and off Packs per year/per ci.00 e-Cigarette/Vaping Use: Never Used service: No Current occupational status: employed Cognitive needs: No Hearing needs: No Vision needs: Yes Questionnaire Thrive Questionnaire Date Thrive assessed: 11/16/23 I am a: Patient What is your living situation today?: I have a steady place to live Within the past 12 months, did the food you bought not last and you didn't have the money to get more?: Often true Within the past 12 months, did you worry whether your food would run out before you got money to buy more?: Never true Do you have trouble paying for medicines?: No Do you have trouble getting transportation to medical appointments?: No Do you have trouble paying your heating and electricity bill?: No Do you have trouble taking care of your child, family member or friend?: No Do you have trouble with day-to-day activities such as bathing, preparing meals, shopping, managing finances, etc.?: No Are you currently unemployed and looking for a job?: No Are you interested in more education?: No Please select the resources that you would like help with: None Currently or been in a relationship where the following occur: No concerns reported THRIVE Score: 1 AUDIT C Alcohol Use Questionnaire (AUDIT-C) 3. How often do you have six or more drinks on one occasion?: Never Total Score: 0 RUTH-7 AMB Questionnaire RUTH-7 Date RUTH - 7 assessed: 11/23/23 Source: Developed by Drs. Tae Dooley, Karlene Goldberg, Serge Bradford and colleagues, with an educational zachary from [employer]. Review of Systems Const All systems reviewed & are unremarkable except as noted in HPI and below Eyes Reports no additional complaints ENT Reports no additional complaints Card Reports no additional complaints Resp Reports no additional complaints GI Reports no additional complaints Physical exam (Primary Care) Vital Signs: Last Vital Signs Pulse 97 01/27/24 10:36 BP 118/72 01/27/24 10:36 Pulse Ox 98 01/27/24 10:36 Oxygen Delivery Method Room Air 01/27/24 10:36 BMI result Body Mass Index 36.7 Tobacco/Smoking Status: Tobacco use Status Tobacco use date assessed 11/23/23 01/27/24 10:42 Patient Tobacco Use Status Current everyday Tobacco 01/27/24 10:42 Tobacco use type Cigarette 01/27/24 10:42 e-Cigarette/Vaping Use Never Used 01/27/24 10:42 Thrive Assessment: Date of Thrive Assessment Date Thrive assessed 11/16/23 01/27/24 10:42 Currently or been in a relationship where the following occur: No concerns reported Const General: no acute distress Eyes General: appearance normal, both eyes and all related structures Resp Effort & Inspection: normal respiratory effort Auscultation: clear to auscultation bilaterally Cardio Rhythm: regular rhythm Heart sounds: S1 normal heart sound present and S2 normal heart sound present Coding Level of Care Code Est Pt Level 3 (69389) Diagnoses Hyperlipidemia E78.5 Over weight E66.3 Assessment & Plan Assessment & Plan (1) Hyperlipidemia: Code(s): E78.5 - Hyperlipidemia, unspecified Category: Medical Plan: Continue Crestor low-cholesterol diet and regular physical activity (2) Over weight: Comment: BMI 38,3 Code(s): E66.3 - Overweight Category: Medical Plan: Increase Wegovy to 2.4 mg and patient will return for physical in February Orders: Orders Comprehensive [place]. Panel Fast 1 Month E78.5 - Hyperlipidemia, unspecified, Z00.00 - Encounter for general adult medical examination without abnormal findings Complete Blood Count Auto Diff 1 Month E78.5 - Hyperlipidemia, unspecified, Z00.00 - Encounter for general adult medical examination without abnormal findings TSH reflex Free T4 1 Month E78.5 - Hyperlipidemia, unspecified, Z00.00 - Encounter for general adult medical examination without abnormal findings Lipid Panel 1 Month E78.5 - Hyperlipidemia, unspecified, Z00.00 - Encounter for general adult medical examination without abnormal findings Medications: New semaglutide (weight loss) (Wegovy) 2.4 mg (0.75 mL) subcut QWEEK 3 mL 3RF semaglutide (weight loss) (Wegovy) 2.4 mg (0.75 mL) subcut QWEEK 3 mL 3RF
== END 2024-01-27 11:20 | disposition home or self-care (01) ==
PROVIDERS: PCP Internal Medicine; Visit Provider Internal Medicine
DX: E78.5 Hyperlipidemia, unspecified (principal); E66.3 Overweight

== ENCOUNTER → 2024-01-27 10:30 | Outpatient (BNVA) | payer BC, MEDICAID, SELFPAY | PROVIDERS: PCP Internal Medicine; Visit Provider Internal Medicine ==

== ENCOUNTER 2024-03-06 07:38 | Outpatient (REF) | payer MEDICAID, SELFPAY ==
--- OUTSIDE RECORDS SUMMARY | 2024-03-06 07:41 | XMS_ITS | Clinical Summary ---
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 Name Role Phone Unavailable Primary Care Provider Unavailabl e Surgical History Surgery Date Site/Laterality Comments OTHER SURGICAL HISTORY PROCEDURE: DENIES PREVIOUS SURGERY Social History Tobacco Use Types Packs/Day Years Used Date Smoking Tobacco: Every Day Cigarettes 0.3 22.1 Started: 02/08/2002 Smokeless Tobacco: Never Alcohol Use Standard Drinks/Week Comments No 0 (1 standard drink = 0.6 oz pur e alcohol) Sex and Gender Information Value Date Recorded Sex Assigned at Not on file Gender Identity Not on file Sexual Orientation Not on file Obstetrics History Plan of Treatment Health Maintenance Due Date Last Done Comments Pneumococcal Vaccine: Pediat rics (0 to 5 Years) and At-Risk Patients (6 to 64 Years) (1 of 2 - PCV) 07/23/1995 DTaP,Tdap,and Td Vaccines (1 - Tdap) 2008 Hepatitis B Vaccines (1 of 3 - 19+ 3-dose series) 2008 Cervical Cancer Screening: P ap Smear 2010 Depression Screening 01/11/2022 HIV Screening 01/11/2022 Hepatitis C Screening 01/11/2022 Social Influencers of Health Screening 01/11/2022 COVID-19 Vaccine (1 - 2023-2 5 season) 2023 Influenza Vaccine (#1) 2023 HIB Vaccines Aged Out No longer eligi ble based on patient's age to complete this topic HPV Vaccines Aged Out No longer eligi ble based on patient's age to complete this topic Hepatitis A Vaccines Aged Out No long er eligible based on patient's age to complete this topic IPV Vaccines Aged Out No longer eligi ble based on patient's age to complete this topic MMR Vaccines Aged Out No longer eligi ble based on patient's age to complete this topic Meningococcal ACWY Vaccine Aged Out N o longer eligible based on patient's age to complete this topic RSV Immunization Patients Un shayna 20 months Aged Out No longer eligible b ased on patient's age to complete this topic Varicella Vaccines Aged Out No longer eligible based on patient's age to complete this topic
[2024-03-06 10:08] LABS: MANUAL DIFF FLAG NO
[2024-03-06 10:15] LABS: Basophils Percent Auto 0.2 % (0-2); Eosinophils Absolute Auto 0.1 X10*3/uL (0.0-0.4); Eosinophils Percent Auto 0.9 % (0-4); Hematocrit 41.5 % (37.0-47.0); Imm Gran Abs Auto 0.02 X10*3/uL (0.00-0.03); Imm Gran Pct Auto 0.2 % (0.0-0.4); Lymphocytes Absolute Auto 4.4 X10*3/uL (1.2-4.9); Lymphocytes Percent Auto 47.4 % (20-40); Mean Corpuscular HGB Conc 33.7 g/dl (31.0-35.0); Mean Corpuscular Volume 86.1 fL (80.0-98.0); Mean Platelet Volume 9.4 fL (9.4-12.3); Monocytes Absolute Auto 0.6 X10*3/uL (0.1-1.2); Monocytes Percent Auto 6.7 % (2-11); Neutrophils Absolute Auto 4.1 x10*3/uL (2.0-8.3); Neutrophils Percent Auto 44.6 % (45-73); Platelet Count 359 X10*3/uL (160-400); Red Blood Count 4.82 X10*6/uL (4.20-5.50); Red Cell Distribution Width 12.6 % (11.0-16.0); White Blood Count 9.2 X10*3/uL (4.8-10.8)
[2024-03-06 11:29] LABS: Alanine Aminotransferase 25 U/L (0-31); Albumin Level 4.3 g/dL (3.5-5.0); Alkaline Phosphatase 86 U/L (39-117); Anion Gap 10 (12-20); Aspartate Amino Transferase 25 U/L (5-31); Bilirubin Total 0.4 mg/dL (0.0-1.0); Blood Urea Nitrogen 11 mg/dL (9-16); Calcium 9.5 mg/dL (8.4-10.2); Carbon Dioxide 24 mmol/L (22-29); Chloride 111 mmol/L (96-108); Cholesterol 124 mg/dL (<200); Estimated Glomerular Filt Rate > 60; Glucose Fasting 93 mg/dL (60-99); HDL Cholesterol 31 mg/dL (>40); LDL Cholesterol Calculated 52 mg/dL (<100); Potassium 4.4 mmol/L (3.3-5.1); Sodium 141 mmol/L (135-145); TSH reflex Free T4 1.56 uIU/mL (0.32-4.0); Total Protein 7.7 g/dL (6.5-8.0); Triglycerides 207 mg/dL (<150)
== END 2024-03-06 07:39 | disposition home or self-care (01) ==
LOC: HO.HMGCLDS 07:38
PROVIDERS: PCP Internal Medicine; Visit Provider Internal Medicine
DX: Z00.00 Encounter for general adult medical examination without abnormal findings (principal); E78.5 Hyperlipidemia, unspecified
CPT/HCPCS: 36415; 80053; 80061; 84443; 85025

== ENCOUNTER 2024-03-08 11:02 | Outpatient (AMB) | payer MEDICAID, SELFPAY ==
[2024-03-08 11:18] VITALS: BP 106/68; PULSE 101; RESP 18; TEMP 37.1; O2SAT 95; BMI 34.9
--- NOTE | 2024-03-08 11:18 | MHC.PC.OV ---
Vital Signs 03/08/24 11:18 Height 5 ft 3 in Weight 197 lb BMI 34.9 BP 106/68 Blood Pressure Location Lt brachial Position Sitting Respiration 18 Pulse 101 H Pulse Source Pulse Oximeter Temp 98.7 F Temp Source Oral Pulse Oximetry (%) 95 Oxygen Delivery Method Room Air Intake Visit Reasons: Annual PE Intake Note: Pt is here today for PE. Allergies No Known Allergies [No Known Allergies*] Allergy (Verified 03/08/24 11:20) Medication List - Last Reconciled 03/08/24 by Delaney Jack MD omeprazole 40 mg PO DAILY rosuvastatin (Crestor) 20 mg PO DAILY tirzepatide (weight loss) (Zepbound) 5 mg (0.5 mL) subcut QWEEK tirzepatide (weight loss) (Zepbound) 7.5 mg (0.5 mL) subcut QWEEK tirzepatide (weight loss) (Zepbound) 2.5 mg (0.5 mL) subcut QWEEK Tobacco use date assessed: 03/08/24 Dental Screening Dental Screen Date: 03/08/24 Did you have a dental visit in the last 12 months?: Yes Did you have a dental problem in the last 6 months where you did not have access to dental care?: No Was dental information given to patient?: Patient has dentist HPI Annual PE HPI Details Pt presents for PE. Pt lost 30 lbs on Wegovy and will be starting Zepbound PFSH Medical History Normal pelvic exam Hyperlipidemia Headache Abdominal pain Annual physical exam Surgical History History of esophagogastroduodenoscopy (EGD) Family History Mother Mental health disorder Father Diabetes Hypertension HIV (human immunodeficiency virus infection) Substance use disorder Sister Mental health disorder Social History Housing: Apartment Patient Tobacco Use Status: Current everyday Tobacco user Tobacco use type: Cigarette Cigarettes Per Day: 6 Years Smoked: 15 years old on and off e-Cigarette/Vaping Use: Never Used service: No Current occupational status: employed Cognitive needs: No Hearing needs: No Vision needs: Yes Questionnaire PHQ-9 Over the last 2 weeks, how often have you been bothered by any of the following problems? 1. Little interest or pleasure in doing things: not at all 2. Feeling down, depressed, or hopeless: not at all 3. Trouble falling or staying asleep, or sleeping too much: not at all 4. Feeling tired or having little energy: several days 5. Poor appetite or overeating: several days 6. Feeling bad about yourself - or that you are a failure or have let yourself or your family down: not at all 7. Trouble concentrating on things, such as reading the newspaper or watching television: not at all 8. Moving or speaking so slowly that other people could have noticed. Or the opposite - being so fidgety or restless that you have been moving around a lot more than usual: not at all 9. Thoughts that you would be better off or of hurting yourself in some way: not at all Total score: 2 Depression Screening Interpretation: Negative Depression Screening Done: Yes 53410 - PHQ-9 Billing: Yes Source: Developed by Drs. Tae Dooley, Karlene Goldberg, Serge Bradford and colleagues, with an educational zachary from [employer]. Thrive Questionnaire Date Thrive assessed: 03/08/24 I am a: Patient What is your living situation today?: I have a steady place to live Within the past 12 months, did the food you bought not last and you didn't have the money to get more?: Never true Within the past 12 months, did you worry whether your food would run out before you got money to buy more?: Never true Do you have trouble paying for medicines?: No Do you have trouble getting transportation to medical appointments?: No Do you have trouble paying your heating and electricity bill?: No Do you have trouble taking care of your child, family member or friend?: No Do you have trouble with day-to-day activities such as bathing, preparing meals, shopping, managing finances, etc.?: No Are you currently unemployed and looking for a job?: No Are you interested in more education?: No Please select the resources that you would like help with: None Currently or been in a relationship where the following occur: No concerns reported THRIVE Score: 0 AUDIT C Alcohol Use Questionnaire (AUDIT-C) 1. How often do you have a drink containing alcohol?: Never 3. How often do you have six or more drinks on one occasion?: Never Total Score: 0 RUTH-7 AMB Questionnaire RUTH-7 Date RUTH - 7 assessed: 03/08/24 Feeling nervous, anxious, or on edge: 0 = Not at all Not being able to stop or control worryin = Not at all Worrying too much about different things: 0 = Not at all Trouble relaxin = Not at all Being so restless that it is hard to sit still: 0 = Not at all Becoming easily annoyed or irritable: 1 = Several days Feeling afraid as if something awful might happen: 0 = Not at all Total RUTH-7 score (0-4 normal; 5-9 mild; 10-14 moderate; 15-21 severe): 1 Source: Developed by Drs. Tae Dooley, Karlene Goldberg, Serge Bradford and colleagues, with an educational zachary from [employer]. RUTH-7 Assessment Billing RUTH-7 Assessment Tool: RUTH-7 Assessment 53288 Review of Systems Const All systems reviewed & are unremarkable except as noted in HPI and below Eyes Reports no additional complaints ENT Reports no additional complaints Card Reports no additional complaints Resp Reports no additional complaints GI Reports no additional complaints Reports no additional complaints Physical exam (Primary Care) Vital Signs: Last Vital Signs Temp 98.7 F 03/08/24 11:18 Pulse 101 H 03/08/24 11:18 Resp 18 03/08/24 11:18 BP 106/68 03/08/24 11:18 Pulse Ox 95 03/08/24 11:18 Oxygen Delivery Method Room Air 03/08/24 11:18 BMI result Body Mass Index 34.9 Tobacco/Smoking Status: Tobacco use Status Tobacco use date assessed 03/08/24 03/08/24 11:24 Patient Tobacco Use Status Current everyday Tobacco 03/08/24 11:24 Tobacco use type Cigarette 03/08/24 11:24 e-Cigarette/Vaping Use Never Used 03/08/24 11:24 PHQ-9: PHQ-9 Score PHQ-9: Total score 2 03/08/24 11:24 Depression Screening Interpretation: Negative Thrive Assessment: Date of Thrive Assessment Date Thrive assessed 03/08/24 03/08/24 11:24 Currently or been in a relationship where the following occur: No concerns reported Const General: no acute distress HENMT Head: Yes normal to inspection General nose exam: Normal external nose present Mouth: Normal oral and palatal mucosa present Eyes General: appearance normal, both eyes and all related structures Neck Neck: Yes supple Resp Effort & Inspection: normal respiratory effort Auscultation: clear to auscultation bilaterally Cardio Rhythm: regular rhythm Heart sounds: S1 normal heart sound present and S2 normal heart sound present GI Inspection: Yes normal to inspection Palpation (GI): Soft to palpation Percussion: Yes normal to percussion Auscultation: normal bowel sounds Speculum Exam - Cervix: normal appearance of the cervix Bimanual exam- vagina & uterus: normal bimanual exam Bimanual Exam- Adnexa, other: normal adnexae Coding Level of Care Code Est Pt Prev Care 18-39y(70489) Diagnoses Over weight E66.3 Hyperlipidemia E78.5 Annual physical exam Z00.00 Additional Codes RUTH-7 Assessment Billing - RUTH-7 Assessment Tool: RUTH-7 Assessment 04911 ([id number]) PHQ-9 - 33501 - PHQ-9 Billing: Yes ([id number]) Assessment & Plan Assessment & Plan (1) Over weight: Comment: BMI 38,3, lost 30 lbs from 04/2022 to 02/2024, will start Zepbound 02/2024 Code(s): E66.3 - Overweight Category: Medical Plan: Patient will start Zepbound at 2.5 mg for the 1st month then increase to 5 mg for the 2nd month and then 7.5 mg for the 3rd month. (2) Hyperlipidemia: Code(s): E78.5 - Hyperlipidemia, unspecified Category: Medical Plan: cont Crestor qod, check lipids in 6 months (3) Annual physical exam: Code(s): Z00.00 - Encounter for general adult medical examination without abnormal findings Category: Medical Plan: Well-balanced diet regular exercise discussed with the patient Pap smear was done today. Follow-up in 6 months with a fasting labs before Orders: Orders Lipid Panel 6 Months E78.5 - Hyperlipidemia, unspecified, Z00.00 - Encounter for general adult medical examination without abnormal findings Comprehensive [place]. Panel Fast 6 Months E78.5 - Hyperlipidemia, unspecified, Z00.00 - Encounter for general adult medical examination without abnormal findings Medications: New tirzepatide (weight loss) (Zepbound) week 5-9 5 mg (0.5 mL) subcut QWEEK 2 mL 0RF tirzepatide (weight loss) (Zepbound) week 10-14 7.5 mg (0.5 mL) subcut QWEEK 2 mL 0RF
--- OUTSIDE RECORDS SUMMARY | 2024-03-08 13:21 | XMS_ITS | Clinical Summary ---
[facility] [address] [place] [address] Care Team Providers Care Eeg Technologist Name Role Phone Unavailable Primary Care Provider [...] Health Maintenance Due Date Last Done Comments DTaP,Tdap,and Td Vaccines (1 - Tdap) 2008 Hepatitis B Vaccines (1 of 3 - 19+ 3-dose series) 2008 Cervical Cancer Screening: P ap Smear 2010 COVID-19 Vaccine ( - 2023-2 5 season) 2023 Influenza Vaccine [...] on patient's age to complete this topic Pneumococcal Vaccine: Pediat rics (0 to 5 Years) and At-Risk Patients (6 to 64 Years) Aged Out No longer eligible b ased on patient's age to complete this topic RSV Immunization Patients Un shayna 20 months Aged Out No longer eligible b ased on patient's age to complete this topic Varicella Vaccines Aged Out No longer eligible based on patient's age to complete this topic
== END 2024-03-08 11:58 | disposition home or self-care (01) ==
PROVIDERS: PCP Internal Medicine; Visit Provider Internal Medicine
DX: E66.3 Overweight (principal); E78.5 Hyperlipidemia, unspecified; Z00.00 Encounter for general adult medical examination without abnormal findings

== ENCOUNTER 2024-03-08 11:02 | Outpatient (REF) | payer MEDICAID, SELFPAY ==
--- OUTSIDE RECORDS SUMMARY | 2024-03-08 14:25 | XMS_ITS | Clinical Summary ---
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
[2024-03-17 15:09] LABS: HPV Genotype 16 Negative (Negative); HPV Genotype 18 Negative (Negative); HPV High Risk Negative (Negative)
== END 2024-03-08 11:03 | disposition home or self-care (01) ==
LOC: HO.LNP 11:02
PROVIDERS: PCP Internal Medicine; Visit Provider Internal Medicine
DX: Z00.00 Encounter for general adult medical examination without abnormal findings (principal); E66.3 Overweight; E78.5 Hyperlipidemia, unspecified
CPT/HCPCS: 87626; 88175; 96127; 99395